=== PATIENT | male | born 1975 | race Caucasian/White ===

== ENCOUNTER 2019-06-28 19:30 | Emergency (ER) | payer OTHER ==
[~2019-06-28] VITALS: Ht 175.3 cm; Wt 56.0 kg
[~2019-06-28 19:30] MED LIST: HYDR-3980 PO
[2019-06-28 19:38] VITALS: Ht 175.3 cm; Wt 56.0 kg
[2019-06-28] MEDS ORDERED: FACTOR VIIA 1 MG VIAL IV ONE ×9 (22:00→22:30)
[2019-06-28] MEDS ORDERED: HYDROCODONE/APAP (10/325) TAB PO ONE (23:30)
[2019-06-28 23:56] VITALS: BP 116/69; PULSE 63; RESP 20
== END 2019-06-28 23:57 | disposition home or self-care (01) ==
LOC: FTE 19:30
DX: D66 Hereditary factor VIII deficiency (principal)
CPT/HCPCS: 96374; J7189; Z7502; Z7610

== ENCOUNTER 2019-08-29 10:32 | Emergency (ER) | payer MEDICAID ==
[~2019-08-29] VITALS: Ht 182.9 cm; Wt 56.1 kg
[~2019-08-29 10:32] MED LIST changes: +ACET500C5 PO; +FACTOR VIII IV*; +FLUC200T52 PO; +FOLI-49 PO; -HYDR-3980 PO; +LACO150T2 PO; +LACT20SO2 PO; +LEVE100018 PO; +MORP15TA92 PO; +MORP60TA37 PO; +OMEP40CA38 PO; +PROP10TA6 PO
[2019-08-29 11:08] VITALS: BP 146/85; PULSE 89; RESP 18; Ht 182.9 cm; Wt 56.1 kg
== END 2019-08-29 12:17 | disposition home or self-care (01) ==
LOC: FTE 10:32
DX: Z76.0 Encounter for issue of repeat prescription (principal); Z87.891 Personal history of nicotine dependence
CPT/HCPCS: 99282